=== PATIENT | male | born 1950 | race Caucasian/White ===

== ENCOUNTER 2017-02-28 13:36 | Emergency (ER) | payer MEDICARE, BC ==
[2017-02-28 13:43] VITALS: TEMP 98.8; O2SAT 98
[2017-02-28] MEDS ORDERED: ONDANSETRON INJ 4 MG/2 ML VIAL IV ONE (13:57)
[2017-02-28] MEDS ORDERED: SODIUM CHLORIDE 0.9% 1000ML 1,000 ML IVS ONE ×2 (13:57→15:09)
--- NOTE | 2017-02-28 14:00 | ED.PDOC ---
History of Present Illness - General Chief Complaint: GI Problem Stated Complaint: Nausea, dizziness Time Seen by Provider: 02/28/17 13:45 Source: patient, RN notes reviewed, Vital Signs reviewed Exam Limitations: no limitations - History of Present Illness Initial Comments: Patient comes in with c/o nausea that started yesterday. Dizziness and confusion , "not feeling right" that started today. No vomiting. + epigastric abdominal pain. No EVANS, CP, SOB, diarrhea or constipation. Timing/Duration: 24 hours Severity: moderate Improving Factors: nothing Worsening Factors: nothing Associated Symptoms: malaise, nausea/vomiting Allergies/Adverse Reactions: Allergies Codeine Allergy (Verified 02/28/17 13:44) Other Causes itching Home Medications: Ambulatory Orders Aspirin [Aspirin EC Low Dose] 81 mg PO DAILY 02/28/17 Bp Med 1 each PO DAILY 02/28/17 Liraglutide [Victoza] 18 mg SC DAILY 02/28/17 Multiple Vitamin [Multi Vitamin] 1 tab PO DAILY 02/28/17 Ondansetron Odt [Zofran ODT] 8 mg PO Q6HR PRN #20 tab 02/28/17 Pantoprazole Tablet [Protonix] 40 mg PO DAILY 02/28/17 Pregabalin [Lyrica] 50 mg PO BID 02/28/17 Review of Systems - Review of Systems Constitutional: States: malaise. Denies: chills, fever EENTM: States: no symptoms reported Respiratory: States: no symptoms reported. Denies: short of breath Cardiology: States: no symptoms reported. Denies: chest pain Gastrointestinal/Abdominal: States: see HPI, abdominal pain, nausea. Denies: constipation, diarrhea, vomiting Musculoskeletal: States: no symptoms reported Skin: States: no symptoms reported Neurological: States: see HPI. Denies: headache, numbness, paresthesia All other Systems: No Change from Baseline Past Medical History (General) - Patient Medical History Hx Stroke: No Hx Congestive Heart Failure: No Hx Hypertension: Yes Hx Diabetes: Yes Hx Gastroesophageal Reflux: Yes Hx Cancer: Yes - lung - chemo and rad tx Hx MRSA: No Surgical History: appendectomy, other - Vaccination History Hx Influenza Vaccination: Yes - 2016 Hx Pneumococcal Vaccination: Yes - Social History Hx Tobacco Use: Yes Family Medical History - Family History Father Living Status: Cause of : Cancer - testicular CA origin Physical Exam - Physical Exam General Appearance: Alert, Comfortable, No apparent distress, Well Developed, Well Groomed, Well Nourished Eye Exam: bilateral normal Ears, Nose, Throat: hearing grossly normal, normal ENT inspection, normal pharynx, other - mildly dry mucous membranes Neck: non-tender, full range of motion, supple, normal inspection Respiratory: lungs clear, normal breath sounds, no respiratory distress, no accessory muscle use Cardiovascular/Chest: normal peripheral pulses, regular rate, rhythm, no gallop , no JVD, no murmur Peripheral Pulses: radial,right: 2+, radial,left: 2+ Gastrointestinal/Abdominal: normal bowel sounds, soft, no organomegaly, no pulsatile mass, tenderness - epigastric Extremity: normal range of motion, non-tender, normal inspection Neurologic: utilization manager II-XII nml as tested, no motor/sensory deficits, alert, normal mood/affect, oriented x 3 Skin Exam: normal color, warm/dry Comments: Vital Signs 02/28/17 13:42 Temperature 98.8 F Pulse Rate [ 99 H Left Radial] Respiratory 20 Rate Blood Pressure 116/72 [Left Arm] O2 Sat by Pulse 98 Oximetry Progress - Progress Progress: 02/28/17 15:10 Feeling better after 1L of NS and Zofran 4mg IV. - Results/Orders Results/Orders: Laboratory Tests 02/28/17 02/28/17 14:14 14:14 WBC 7.1 RBC 4.89 Hgb 14.0 Hct 41.4 L MCV 84.8 MCH 28.7 MCHC 33.9 RDW 14.0 Plt Count 169 MPV 8.6 Absolute Neuts (auto) 5.40 Absolute Lymphs (auto) 1.10 Absolute Monos (auto) 0.40 Absolute Eos (auto) 0.10 Absolute Basos (auto) 0.10 Neutrophils % 75.7 Lymphocytes % 16.0 L Monocytes % 6.3 Eosinophils % 0.8 L Basophils % 1.2 Sodium 138 Potassium 3.4 L Chloride 104 Carbon Dioxide 22 Anion Gap 15.4 BUN 23 H Creatinine 1.09 BUN/Creatinine Ratio 21.1 H Random Glucose 154 H Serum Osmolality 282.4 Calcium 9.9 Total Bilirubin 0.8 AST 17 ALT 12 Alkaline Phosphatase 40 L Serum Total Protein 7.6 Albumin 4.4 Globulin 3.2 Albumin/Globulin Ratio 1.4 Amylase 36 Lipase 32 Departure - Departure Clinical Impression: Nausea, Dehydration Time of Disposition: 15:45 Disposition: Discharge to Home or Self Care Condition: Good Departure Forms: ED Discharge - Pt. Copy, Patient Portal Self Enrollment Instructions: DI for Dehydration -- Adult, DI for Nausea -- Adult Diet: resume usual diet Activity: increase activity as tolerated Prescriptions: Ondansetron Odt [Zofran ODT] 8 mg PO Q6HR PRN #20 tab PRN Reason: Nausea Home Medications: Ambulatory Orders Aspirin [Aspirin EC Low Dose] 81 mg PO DAILY 02/28/17 Bp Med 1 each PO DAILY 02/28/17 Liraglutide [Victoza] 18 mg SC DAILY 02/28/17 Multiple Vitamin [Multi Vitamin] 1 tab PO DAILY 02/28/17 Ondansetron Odt [Zofran ODT] 8 mg PO Q6HR PRN #20 tab 02/28/17 Pantoprazole Tablet [Protonix] 40 mg PO DAILY 02/28/17 Pregabalin [Lyrica] 50 mg PO BID 02/28/17
[2017-02-28 16:23] VITALS: BP 146/107
== END 2017-02-28 16:12 | disposition home or self-care (01) ==
LOC: ER 13:36
DX: E86.0 Dehydration (principal); R11.0 Nausea; I10 Essential (primary) hypertension; E11.9 Type 2 diabetes mellitus without complications; Z85.118 Personal history of other malignant neoplasm of bronchus and lung; Z79.82 Long term (current) use of aspirin; Z79.899 Other long term (current) drug therapy; Z88.6 Allergy status to analgesic agent
CPT/HCPCS: 36415; 80053; 82150; 83690; 85025; J2405; J7030

== ENCOUNTER 2019-08-14 22:24 | Emergency (ER) | payer MEDICARE, BC ==
[2019-08-14] MEDS ORDERED: SODIUM CHLORIDE 0.9% (FLUSH) 10 ML SYG IV PRN (22:43)
--- NOTE | 2019-08-14 22:48 | ED.PDOC ---
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 Family reported to EMS pt began acting confused and agitated, worsening since this morning. Family reported sometimes he occasionally becomes confused but today much worse than normal. Also reported he has new onset subjective fevers today and his blood glucose levels have been high and he has run out of insulin. All this information 2nd hand from EMS as family not at bedside. Pt was agitated so he was given Ativan 2 mg IV en route and is now drowsy. He will speak and follow commands but is not cooperative with my questions. Denies any acute complaints. Denies chest pain, dyspnea, abd pain, n/v/d, urinary sx's. EMS states he was recently dx'd with bile duct cancer and has undergone a couple rounds of chemotherapy at a hospital in [place]. GF at bedside shortly after arrival. She reports they live in [place] and came out here for a short stay at the [place]. Reports pt underwent Whipple procedure <2 months ago at [facility] in [place]. He is scheduled to do four 2-week cycles of chemotherapy which includes a once-weekly infusion and daily capecitabine (1500 mg BID x14 days). Today was his final day of his first cycle. GF reports he began having some diarrhea yesterday intermittently. This morning he developed nausea which worsened throughout the day and has had numerous episodes of yellow emesis and has had gradually worsening confusion and agitation throughout the day. Reports he felt hot and flushed/diaphoretic this evening so that's when she called EMS. His cancer surgeon is Dr. Hernandez at [facility] and his hem/onc is Dr. Ty Smith at [facility] in [place]. Allergies/Adverse Reactions: Allergies Codeine Allergy (Verified 02/28/17 13:44) Other Causes itching Home Medications: Ambulatory Orders Aspirin [Aspirin EC Low Dose] 81 mg PO DAILY 02/28/17 Bp Med 1 each PO DAILY 02/28/17 Liraglutide [Victoza] 18 mg SC DAILY 02/28/17 Multiple Vitamin [Multi Vitamin] 1 tab PO DAILY 02/28/17 Ondansetron Odt [Zofran ODT] 8 mg PO Q6HR PRN #20 tab 02/28/17 Pantoprazole Tablet [Protonix] 40 mg PO DAILY 02/28/17 Pregabalin [Lyrica] 50 mg PO BID 02/28/17 Ondansetron Odt [Zofran ODT] 8 mg PO Q8H PRN 14 Days #15 tab 08/15/19 Review of Systems - Review of Systems Review of Systems: 08/14/19 22:48 as per HPI, very limited given altered mental status Past Medical History (General) - Patient Medical History Hx Stroke: No Hx Congestive Heart Failure: No Hx Hypertension: Yes Hx Diabetes: Yes Hx Gastroesophageal Reflux: Yes Hx Cancer: Yes - lung - chemo and rad tx Hx MRSA: No - Vaccination History Hx Influenza Vaccination: Yes - 2017 Hx Pneumococcal Vaccination: Yes - Social History Hx Tobacco Use: Yes Family Medical History - Family History Father Living Status: Cause of : Cancer - testicular CA origin Physical Exam - Physical Exam General Appearance: Comfortable, Other - appears drowsy and confused Eye Exam: bilateral normal Ears, Nose, Throat: hearing grossly normal, normal ENT inspection, normal pharynx Neck: non-tender, full range of motion, supple, normal inspection Respiratory: lungs clear, normal breath sounds, no respiratory distress, no accessory muscle use Cardiovascular/Chest: no edema, no gallop, no JVD, no murmur, tachycardia Peripheral Pulses: radial,right: 2+, radial,left: 2+ Gastrointestinal/Abdominal: normal bowel sounds, non tender, soft, no organomegaly Back Exam: normal inspection, no CVA tenderness, no vertebral tenderness Extremity: normal range of motion, non-tender, normal inspection, no pedal edema, no calf tenderness, normal capillary refill Neurologic: edger machine setter II-XII nml as tested, no motor/sensory deficits, other - unable to assess orientation given AMS and uncooperative. Moves all extremities well, localizes and withdraws to painful stimuli throughout Skin Exam: normal color, warm/dry Progress - Progress Progress: 08/14/19 22:50 AMS -etiology uncertain: hepatic encephalopathy, sepsis, iatrogenic (?chemo), infectious (UTI, gastroenteritis, PNA, other), illicit drug use, hyperglycemia, electrolyte/metabolic derangement, other -tachycardia but vitals otherwise stable on arrival, afebrile, no acute complaints or pain -obtain labs, CXR, EKG -place PIV, 1 L NS bolus 08/15/19 01:57 -Labs revealed WBC 5,000 with left shift & no bands, lactate 1.9. Na 131, K 3.2, BUN 15, Cr 1.1. T bili 1.1. Glucose improved from 436 on arrival to 193 following 2 L NS bolus and 8 units regular insulin IV -CT A/P obtained which revealed no acute processes -CXR no acute processes per my read -Pt with markedly improved mental status - now awake and alert, talking, answering questions appropriately although still confused as to where he is and how he got here. Denies any complaints. Given KCl 40 mEq PO. -I discussed all of the above with pt's on-call hem/onc team at [facility]. Dr. Hendrickson was the on-call physician who was able to pull pt's chart there. Discussed pt's presentation and findings. She agrees that acute presentation likely 2/2 side effects from chemotherapy treatment (states his IV chemotherapy agent is ge mcitabine). No indication for transfer at this time. States all labs near or at his baseline except for blood glucose which was higher than usual compared to their records. Discussed that patient has run out of his diabetes medication and this is likely why. Agrees pt may continue to be treated here and f/u closely upon discharge. -Discussed again with pt & his GF. They ask to be discharged home to rest here for the night and drive back to tomorrow to be seen in the cancer clinic. Advised to refill diabetes medications. Hold any further chemo until cleared by hem/onc. Return warnings discussed at length. Terrell Live MD Billing #[id number] 08/14/19 22:43 IV Care:Saline Lock per Protoc QSHIFT Telemetry .ONCE URINE DRUG SCREEN, 7 ASSAY Routine Sodium Chloride 0.9% (Flush) [Saline Flush Syringe] 10 ml IV PRN PRN EKG Assessment ONCE Pulse Oximetry Assessment DAILY 08/14/19 22:45 EKG STAT 08/14/19 22:49 GROUP A STREP SCREEN, RAPID Stat 08/15/19 00:02 Hold Metformin x 48Hrs [id number] 08/15/19 01:23 Sodium Chloride 0.9% 1000ML [Ns 1000 ml] 1,000 ml IVS ONCE 08/15/19 01:46 URINALYSIS Stat 08/15/19 09:00 Pulse Ox Daily Laboratory Results - last 24 hr 08/14/19 08/14/19 08/14/19 23:00 23:00 23:00 WBC 5.2 RBC 4.29 L Hgb 11.7 L Hct 34.6 L MCV 80.7 MCH 27.3 MCHC 33.8 RDW 14.5 Plt Count 100 L MPV 7.7 Absolute Neuts (auto) 4.60 Absolute Lymphs (auto) 0.40 L Absolute Monos (auto) 0.20 Absolute Eos (auto) 0.00 Absolute Basos (auto) 0.00 Neutrophils % 88.4 H Lymphocytes % 6.7 L Monocytes % 4.7 Eosinophils % 0.1 L Basophils % 0.1 PT 12.2 H INR 1.23 H PTT (SP) 20.1 L Sodium 131 L Potassium 3.2 L Chloride 98 L Carbon Dioxide 23 Anion Gap 13.2 BUN 15 Creatinine 1.11 BUN/Creatinine Ratio 13.5 POC Glucose Random Glucose 436 H* Serum Osmolality 281.5 Lactic Acid Calcium 8.9 Total Bilirubin 1.1 H AST 25 ALT 16 Alkaline Phosphatase 45 Ammonia Creatine Kinase 132 B-Natriuretic Peptide 177.0 H Serum Total Protein 7.2 Albumin 3.9 Globulin 3.3 Albumin/Globulin Ratio 1.2 08/14/19 08/14/19 08/14/19 23:00 23:00 23:00 WBC RBC Hgb Hct MCV MCH MCHC RDW Plt Count MPV Absolute Neuts (auto) Absolute Lymphs (auto) Absolute Monos (auto) Absolute Eos (auto) Absolute Basos (auto) Neutrophils % Lymphocytes % Monocytes % Eosinophils % Basophils % PT INR PTT (SP) Sodium Potassium Chloride Carbon Dioxide Anion Gap BUN Creatinine BUN/Creatinine Ratio POC Glucose 381 H Random Glucose Serum Osmolality Lactic Acid 1.9 Calcium Total Bilirubin AST ALT Alkaline Phosphatase Ammonia 15 Creatine Kinase B-Natriuretic Peptide Serum Total Protein Albumin Globulin Albumin/Globulin Ratio 08/15/19 01:25 WBC RBC Hgb Hct MCV MCH MCHC RDW Plt Count MPV Absolute Neuts (auto) Absolute Lymphs (auto) Absolute Monos (auto) Absolute Eos (auto) Absolute Basos (auto) Neutrophils % Lymphocytes % Monocytes % Eosinophils % Basophils % PT INR PTT (SP) Sodium Potassium Chloride Carbon Dioxide Anion Gap BUN Creatinine BUN/Creatinine Ratio POC Glucose 193 H D Random Glucose Serum Osmolality Lactic Acid Calcium Total Bilirubin AST ALT Alkaline Phosphatase Ammonia Creatine Kinase B-Natriuretic Peptide Serum Total Protein Albumin Globulin Albumin/Globulin Ratio 08/15/19 02:07 - EKG/XRAY/CT EKG: Sinus, Tachy - HR, 110, no ST elevs or q waves, axis normal, QTc borderline prolonged 514 msecs, intervals otherwise normal, no prior EKG for comparison XRAY: chest - no acute processes per my read Departure - Departure Clinical Impression: Adverse drug effect, Hyperglycemia due to type 2 diabetes mellitus Time of Disposition: 01:52 Disposition: Discharge to Home or Self Care Condition: Fair Departure Forms: ED Discharge - Pt. Copy, Patient Portal Self Enrollment Instructions: Hyperglycemia, Adult (DC), Adverse Drug Reactions, Adult (DC) Diet: resume usual diet Activity: increase activity as tolerated Prescriptions: Ondansetron Odt [Zofran ODT] 8 mg PO Q8H PRN 14 Days #15 tab PRN Reason: Nausea Home Medications: Ambulatory Orders Aspirin [Aspirin EC Low Dose] 81 mg PO DAILY 02/28/17 Bp Med 1 each PO DAILY 02/28/17 Liraglutide [Victoza] 18 mg SC DAILY 02/28/17 Multiple Vitamin [Multi Vitamin] 1 tab PO DAILY 02/28/17 Ondansetron Odt [Zofran ODT] 8 mg PO Q6HR PRN #20 tab 02/28/17 Pantoprazole Tablet [Protonix] 40 mg PO DAILY 02/28/17 Pregabalin [Lyrica] 50 mg PO BID 02/28/17 Ondansetron Odt [Zofran ODT] 8 mg PO Q8H PRN 14 Days #15 tab 08/15/19 Additional Instructions: Remain well-hydrated and advance diet and activity level slowly as tolerated. Call your cancer clinic tomorrow morning to schedule close follow-up and to discuss the adverse side effects you were having from the chemotherapy treatment before beginning the next cycle. Return if symptoms worsen or if other concerning symptoms develop such as abdominal pain, intractable nausea & vomiting, fevers, blood in the vomit or stool, stroke-like symptoms, etc...
[2019-08-14 22:49] VITALS: TEMP 98.9
[2019-08-14] MEDS ORDERED: SODIUM CHLORIDE 0.9% 1000ML 1,000 ML IVS ONE (23:32)
--- NOTE | 2019-08-14 23:47 | RAD ---
EXAM DESCRIPTION: . CLINICAL HISTORY: 69 years Male fevers, altered mental status COMPARISON: None. FINDINGS: The cardiomediastinal silhouette appears unremarkable. Tortuosity in the descending thoracic aorta. The lungs appear hyperexpanded. No consolidating infiltrates or pleural effusions. No pneumothorax. IMPRESSION: No acute abnormality is identified. Electronically signed by: Earl Angel MD 08/14/2019 11:46 PM CDT
[2019-08-14] MEDS ORDERED: INSULIN, REG.(HUMAN) 100 U/ML VIAL IV ONE (23:56)
--- NOTE | 2019-08-15 00:56 | CT ---
CLINICAL HISTORY: nausea, vomiting, fevers, s/p Whipple COMPARISON: None. TECHNIQUE: CT ABDOMEN PELVIS WITH IV CONTRAST on 08/15/2019 12:01 AM CDT This exam was performed according to our departmental dose-optimization program, which includes automated exposure control, adjustment of the mA and/or kV according to patient size and/or use of iterative reconstruction technique. FINDINGS: Lower lungs are clear. Abdomen: There is probable pneumobilia in the left lobe of the liver. There is no biliary dilatation. Cholecystectomy was performed. Pancreatic head resection was performed as part of Whipple. Spleen is normal in size. There are several small cysts in the right kidney. Left kidney is unremarkable. Adrenal glands are unremarkable. Abdominal aorta is normal in course and caliber without aneurysm. There is no free air. There is no retroperitoneal adenopathy. Pelvis: There is no bowel obstruction. Urinary bladder is unremarkable. There is no free fluid. Appendix is not clearly seen. Skeleton: There are no acute osseous findings. No suspicious bony lesions. IMPRESSION: Status post Whipple procedure. No definite abscess. Electronically signed by: Jean Salter MD 08/15/2019 12:55 AM CDT
[2019-08-15 01:02] VITALS: BP 152/108; O2SAT 94
[2019-08-15] MEDS ORDERED: SODIUM CHLORIDE 0.9% 1000ML 1,000 ML IVS ONE (01:23)
[2019-08-15] MEDS ORDERED: POTASSIUM CHLORIDE 20 MEQ TAB PO ONE (01:56)
[2019-08-15] MEDS ORDERED: ONDANSETRON ODT (ER DISP) 8 MG TAB PO ONE (01:57)
== END 2019-08-15 02:04 | disposition home or self-care (01) ==
LOC: ER 22:24
DX: T45.1X5A Adverse effect of antineoplastic and immunosuppressive drugs, initial encounter (principal); E11.65 Type 2 diabetes mellitus with hyperglycemia; R41.82 Altered mental status, unspecified; R00.0 Tachycardia, unspecified; Z85.118 Personal history of other malignant neoplasm of bronchus and lung; I10 Essential (primary) hypertension; Z79.82 Long term (current) use of aspirin
CPT/HCPCS: 71045; 74177; 80053; 80307; 81001; 82140; 82550; 82948; 83605; 83880; 85025; 85610; 85730; 87502; 93005; J7030